=== PATIENT | female | born 1990 | race Caucasian/White ===

== ENCOUNTER 2024-06-25 16:24 | Emergency (ER) | payer BC, OTHER ==
--- OUTSIDE RECORDS SUMMARY | 2024-06-25 16:26 | XMS REPORT | Continuity of Care Document ---
Author Name Unknown Address [address] [facility] [address] [place] [address] [facility] thconnect Address [address] [facility]. [address] [place] [address] Care Team Providers Care Meat Hanger Name Role Phone Larissa Varma Attending Clinician UnavailSimon Brizuela Attending Clinician Unavail able Larissa Varma Admitting Clinician Marium e Payers Payer Name Policy Type Policy Number Effective Date Expirati on Date Source Allergies, Adverse Reactions, Alerts Allergy Name Allergy Type Status Severity Reaction(s) Onset Date Inactive Date Treating Clinician Comments Source iodine DA Active U SYNCOPE 8 00:00: 00 [facility] iodine DA Active U SYNCOPE 8- 00:00: 00 [facility] No Known Allergie s DA Active U 8- 00:00: 00 [facility] No Known Allergie s DA Active U 2020-06 1- 00:00: 00 [facility] Procedures Procedure Date / Time Performed Performing Clinicia n Source [id number] 2022-02-12 00:00:00 [facility]PR [facility] [id number] 2022-02-12 00:00:00 DEBPR [facility] [id number] 2022-02-12 00:00:00 DEBPR [facility] Encounters Start Date/Time End Date/Time Encounter Type Admission Type Attending Clinicians Care Facility Care Department Encounter ID Source 2022-02-16 00:00:00 Inpatient Larissa Mosley [facility] LD [id number] [facility] 2021-05-12 22:54:00 Inpatient Simon Mark [facility] GRICEL [id number] [facility] 2022-02-11 22:04:00 2022-02-14 13:37:00 Inpatient EM Larissa Varma [facility] [id number] [facility] 2022-02-05 18:09:00 2022-02-05 21:11:00 Emergency EM Larissa Varma [facility] MASHA [id number] [facility] Results Test Description Test Time Test Comments Results Result Co mments Source AB HEPATITIS C [id number] 04:30:00* Test Item Value Reference Range Interpretation Comme nts AB HEPATITIS C (test code = HCVAB) NONREACTIVE NONREACTIVE SIGNAL TO CUTOFF (test code = CUTOFF) 0.21 <0.80 N AB [id number] 04:30:00* Test Item Value Reference Range Interpretation Comme nts AB TREPONEMA (test code = TREPAB) NONREACTIVE NONREACTIVE AB HIV 1 04:30:00* Test Item Value Reference Range Interpretation Comme nts AB HIV 1 2 (test code = CUJ43IC) NONREACTIVE NONREACTIVE Done by [employer] HIV Ag/Ab Combo Screen COVID 19 Asymptomatic IH [id number] 23:54:00* Test Item Value Reference Range Interpretation Comme nts COVID 19 Asymptomatic IH AG (test code = COVNONPUIAG) NEGATIVE NEGATIVE This test has be en authorized only for the detection ofproteins from SARS-CoV-2, not for any other viruses orpathogens. Negative results should be treated as presumptive andconfirmed with a molecular assay, if necessary for patientmanagement. Negative results do not rule out COVID-19 andshould not be used as the sole basis for treatment orpatient management decisions, including infection controldecisions. Negative results should be considered in thecontext of a patient's recent exposures, history and thepresence of clinical signs and symptoms consistent withCOVID-19. This test has not been FDA cleared or approved; the test hasbeen authorized by FDA under an Emergency Use Authorization(EUA) for use by laboratories certified under the CLIA thatmeet the requirements to perform moderate, high or waivedcomplexity tests. This test is authorized for use at thePoint of Care (POC), i.e., in patient care settingsoperating under a CLIA Certificate of Waiver, Certificate ofCompliance, or Certificate of Accreditation. This test is only authorized for the duration of thedeclaration that circumstances exist justifying theauthorization of emergency use of in vitro diagnostic testsfor detection and/or diagnosis of COVID-19 under Ximurcu149(b)(1) of the Act, 21 U.S.C. 360bbb-3(b)(1), unless theauthorization is terminated or revoked sooner. CBC W/AUTO [id number] 23:17:00* Test Item Value Reference Range Interpretation Comme nts WHITE BLOOD CELL (test code = WBC) 13.1 K/mm3 6.5-12.3 H RED BLOOD CELL (test code = RBC) 4.55 M/mm3 3.51-4.69 N HEMOGLOBIN (test code = HGB) 12.7 g/dL 10.1-13.8 N HEMATOCRIT (test code = HCT) 37.7 % 32.5-41.8 N MEAN CELL VOLUME (test code = MCV) 82.9 fL 84.6-96.6 L MEAN CELL HGB (test code = MCH) 27.9 pg 27.3-33.9 N MEAN CELL HGB CONCETRATION ( test code = MCHC) 33.7 gm/dL 32.0-34.2 N RED CELL DISTRIBUTION WIDTH (test code = RDW) 13.1 % 12.2-16.3 N PLATELET COUNT (test code = PLT) 225 K/mm3 134-363 N MEAN PLATELET VOLUME (test c ode = MPV) 11.1 fL 9.2-12.7 N NEUTROPHIL % (test code = NT%) 80.6 % 57.9-77.3 H LYMPHOCYTE % (test code = LY%) 12.9 % 14.5-29.7 L MONOCYTE % (test code = MO%) 4.8 % 3.6-10.2 N EOSINOPHIL % (test code = EO%) 0.7 % 0.0-3.0 N BASOPHIL % (test code = BA%) 0.2 % 0.1-0.9 N NEUTROPHIL # (test code = NT#) 10.6 K/mm3 LYMPHOCYTE # (test code = LY#) 1.7 K/mm3 MONOCYTE # (test code = MO#) 0.6 K/mm3 EOSINOPHIL # (test code = EO#) 0.09 K/mm3 BASOPHIL # (test code = BA#) 0.0 K/mm3 RBC MORPHOLOGY REQUIRED (zenon t code = RBCM) NORMAL NORMAL PLATELET MORPHOLOGY REQUIRED (test code = PLTMR) NORMAL NORMAL
[2024-06-25] MEDS ORDERED: predniSONE 20 MG TAB ONE (17:01)
[2024-06-25 17:16] LABS: Specific Gravity 1.016 (1.005-1.030)
[2024-06-25 17:18] LABS: Specific Gravity 1.016 (1.005-1.030); Sqamous Epithelial <5 /HPF (None Seen); Urine Bacteria None Seen /HPF (<20); Urine Bilirubin NEGATIVE (Negative); Urine Blood 3+ (Negative); Urine Clarity Extremely Turbid (Clear); Urine Color Yellow (Yellow); Urine Crystals Unidentified Few /HPF (None Seen); Urine Culture Reflex Order NOT NEEDED; Urine Glucose NEGATIVE (Negative); Urine Ketones NEGATIVE (Negative); Urine Microscopic Reflex YN ORDER UMIC; Urine Nitrite NEGATIVE (Negative); Urine Protein NEGATIVE (Negative); Urine RBC >50 /HPF (None Seen); Urine Urobilinogen 3+ (Normal); Urine WBC <5 /HPF (<5); Urine WBC Clump Rare /HPF (None Seen); Urine Yeast (Budding) Trace /HPF (None Seen); Urine pH 7.5 (5.0-7.0)
--- NOTE | 2024-06-25 17:24 | EDPHYS ---
Physician Documentation [facility] Name: Jovanna Sanders Age: 33 yrs Sex: Female : 1990 Arrival Date: 06/25/2024 Time: 16:24 Bed 12 Private MD: ED Physician Marcel Wood HPI: 06/25 17:04 This 33 yrs old Female presents to ER via Ambulatory with complaints of Low Back Pain. kb 17:04 Pt is a 33 year old female who presents for right low back pain, numbness and tingling kb to bilateral upper extremities when sleeping that started about 5 months ago. Denies injury or trauma. Denies urinary symptoms, fever. . Historical: - Allergies: 16:40 Iodine; tm6 - PMHx: 16:40 ADD; Anxiety; Depressive disorder; tm6 - PSHx: 16:40 None; tm6 - Immunization history:: Flu vaccine is not up to date. - Infectious Disease History:: Denies. - Social history:: Smoking status: Patient denies any tobacco usage or history of. ROS: 17:03 Constitutional: As per HPI kb Exam: 17:03 Constitutional: This is a well developed, well nourished patient who is awake, alert, kb and in no acute distress. Head/Face: Normocephalic, atraumatic. ENT: Moist Mucous membranes Cardiovascular: Regular rate Respiratory: Respirations even and unlabored. No increased work of breathing. Talking in full sentences Abdomen/GI: Soft, non-tender. No distention Skin: Warm, dry with normal turgor. Normal color. MS/ Extremity: Pulses equal, no cyanosis. Neurovascular intact. Full, normal range of motion. Neuro: Awake and alert, GCS 15, oriented to person, place, time, and situation. 17:03 Back: pain, that is mild, of the left trapezius and right low back, ROM is normal, Vital Signs: 16:41 Pulse 68; Resp 19; Temp 98.4(O); Pulse Ox 100% on R/A; Weight 117.93 kg; Height 5 ft. 5 tm6 in. ; Pain 0/10; 16:46 BP 131 / 69; jb4 16:41 Body Mass Index 43.27 (117.93 kg, 165.1 cm) tm6 16:41 Pain Scale: Adult tm6 MDM: 16:28 Medical Screening Exam initiated kb 17:18 Differential diagnosis: strain, sciatica, Herniated disc UTI. Data reviewed: vital kb signs, nurses notes. Test considered but Not performed: MRI: mri considered, but no emergent need at this time. Test considered but Not performed: X-ray: xray considered but pt has no bony tenderness. Counseling: I had a detailed discussion with the patient and/or guardian regarding the historical points, exam findings, and any diagnostic results supporting the discharge/admit diagnosis, lab results, the need for outpatient follow up, a family practitioner, to return to the emergency department if symptoms worsen or persist or if there are any questions or concerns that arise at home. 06/25 16:41 Order name: Test, Urine; Complete Time: 17:17 kb 06/25 16:41 Order name: Urinalysis w/ reflexes; Complete Time: 17:18 kb Administered Medications: 16:41 CANCELLED (Duplicate Order): dexamethasone 10 mg IM once kb 17:00 Drug: predniSONE PO 40 mg PO once Route: PO; 4 17:49 Follow up: Response: No adverse reaction jb4 Disposition: 20:21 I was immediately available on-site in the Emergency Department for consultation in the ms3 care of the patient. Disposition Summary: 06/25/24 17:23 Discharge Ordered Notes: Location: Home kb Condition: Stable kb Diagnosis - Low back pain kb - Paresthesia of skin kb Followup: kb - With: Emergency Department - When: As needed - Reason: Worsening of condition Followup: kb - With: Private Physician - When: 2 - 3 days - Reason: Recheck today's complaints, Continuance of care, Re-evaluation by your physician Discharge Instructions: - Discharge Summary Sheet kb - Acute Back Pain, Adult kb - Paresthesia, [id number] kb Forms: - Medication Reconciliation Form kb - Antibiotic Education kb - Prescription Opioid Use kb - Patient Portal Instructions kb - Leadership Thank You Letter kb Prescriptions: - Prednisone 20 mg Oral Tablet - take 1 tablet ORAL route once daily for 5 days; 5 tablet; Refills: 0, Product kb Selection Permitted Signatures: Dispatcher [employer] Ashley Lopez, David Cobb RN RN jb4 Marcel Wood DO DO ms3 Sakina, Tawney, RN RN tm6 Corrections: (The following items were deleted from the chart) : 16:41 Dexamethasone IM 10 mg IM once ordered. kb kb 16: 16:40 Allergies: No Known Allergies; tm6 tm6
--- NOTE | 2024-06-25 17:24 | ER ---
Nurse's Notes [facility] Name: Jovanna Sanders Age: 33 yrs Sex: Female : 1990 Arrival Date: 06/25/2024 Time: 16:24 Bed 12 Private MD: Diagnosis: Low back pain;Paresthesia of skin Presentation: 06/25 16:35 Chief complaint: Patient states: pressure in left low back and my arms have been tm6 falling asleep. Started about 5 months ago. Coronavirus screen: Client denies travel out of the [place] in the last 14 days. Ebola Screen: Patient negative for fever greater than or equal to 101.5 degrees Fahrenheit, and additional compatible Ebola Virus Disease symptoms Patient denies exposure to infectious person. Patient denies travel to an Ebola-affected area in the 21 days before illness onset. No symptoms or risks identified at this time. 16:35 Method Of Arrival: Ambulatory tm6 16:38 Risk Assessment: Do you want to hurt yourself or someone else? Patient reports no tm6 desire to harm self or others. Onset of symptoms was January 15, 2024. 16:38 Acuity: FRANCISCO JAVIER 4 tm6 Triage Assessment: 16:35 General: Appears in no apparent distress. Behavior is calm, cooperative. Pain: tm6 Complains of pain in low back area, right arm and left arm Quality of pain is described as pressure. EENT: No signs and/or symptoms were reported regarding the EENT system. Neuro: Level of Consciousness is awake, alert, obeys commands, Oriented to person, place, time, situation. Cardiovascular: Patient's skin is warm and dry. Respiratory: Airway is patent Respiratory effort is even, unlabored, Respiratory pattern is regular, symmetrical. GI: No signs and/or symptoms were reported involving the gastrointestinal system. Abdomen is round non-distended. : No signs and/or symptoms were reported regarding the genitourinary system. Derm: No signs and/or symptoms reported regarding the dermatologic system. Musculoskeletal: Reports pain in back, right arm and left arm since x5 months. Historical: - Allergies: 16:40 Iodine; tm6 - PMHx: 16:40 ADD; Anxiety; Depressive disorder; tm6 - PSHx: 16:40 None; tm6 - Immunization history:: Flu vaccine is not up to date. - Infectious Disease History:: Denies. - Social history:: Smoking status: Patient denies any tobacco usage or history of. Screenin:48 [facility] ED Fall Risk Assessment (Adult) History of falling in the last 3 months, jb4 including since admission No falls in past 3 months (0 pts) Confusion or Disorientation No (0 pts) Intoxicated or Sedated No (0 pts) Impaired Gait No (0 pts) Mobility Assist Device Used No (0 pt) Altered Elimination No (0 pt) Score/Fall Risk Level 0 - 2 = Low Risk Oriented to surroundings, Maintained a safe environment. Abuse screen: Denies threats or abuse. Nutritional screening: No deficits noted. Tuberculosis screening: No symptoms or risk factors identified. Assessment: 17:48 Reassessment: Patient appears in no apparent distress at this time. Patient and/or jb4 family updated on plan of care and expected duration. Pain level reassessed. Patient is alert, oriented x 3, equal unlabored respirations, skin warm/dry/pink. Vital Signs: 16:41 Pulse 68; Resp 19; Temp 98.4(O); Pulse Ox 100% on R/A; Weight 117.93 kg; Height 5 ft. 5 tm6 in. ; Pain 0/10; 16:46 BP 131 / 69; jb4 16:41 Body Mass Index 43.27 (117.93 kg, 165.1 cm) tm6 16:41 Pain Scale: Adult tm6 ED Course: 16:27 Patient arrived in ED. ra3 16:28 [facility] kb 16:28 Marcel Wood DO is Attending Physician. kb 16:35 Arm band placed on right wrist. tm6 16:38 Triage completed. tm6 17:48 Patient has correct armband on for positive identification. Bed in low position. Call jb4 light in reach. Side rails up X 1. Provided Education on: discharge instructions.. 17:48 No provider procedures requiring assistance completed. Patient did not have IV access jb4 during this emergency room visit. Administered Medications: 16:41 CANCELLED (Duplicate Order): dexamethasone 10 mg IM once kb 17:00 Drug: predniSONE PO 40 mg PO once Route: PO; jb4 17:49 Follow up: Response: No adverse reaction jb4 Medication: 17:48 VIS not applicable for this client. jb4 Outcome: 17:23 Discharge ordered by . jeane 17:48 Discharged to home ambulatory, jb4 17:48 Condition: stable 17:48 Discharge instructions given to patient, Instructed on discharge instructions, follow up and referral plans. medication usage, Demonstrated understanding of instructions, follow-up care, medications, Prescriptions given X 1, 17:49 Patient left the ED. jb4 Signatures: Ashley Jeffrey, COMMUNICATIONS TOWER TECHNICIAN-C COMMUNICATIONS TOWER TECHNICIAN-David Sanchez RN RN jb4 Geetha Presley RN RN tm6 Isabel Zhao ra3 Corrections: (The following items were deleted from the chart) 16:36 16:35 Chief complaint: Patient states: pressure in left low back and my arms have been tm6 falling asleep tm6 16:41 16:40 Allergies: No Known Allergies; tm6 tm6
[2024-06-25 18:48] VITALS: TEMP 98.4; O2SAT 100
[2024-06-25 18:57] VITALS: BP 131/69
== END 2024-06-25 17:49 | disposition home or self-care (01) ==
LOC: ER 16:24
DX: M54.50 Low back pain, unspecified (principal); R20.2 Paresthesia of skin
CPT/HCPCS: 81001; 81025; 99283; J7512